=== PATIENT | male | born 1955 | race Hispanic/Latino ===

== ENCOUNTER 2017-07-03 21:58 | Emergency (ER) | payer OTHER ==
[2017-07-03 22:00] VITALS: TEMP 96; O2SAT 97
[2017-07-03] MEDS ORDERED: Sodium Chloride 0.9% 1,000 ML IV STA (22:15)
[2017-07-03 22:55] VITALS: BP 130/77; PULSE 71; RESP 24
[2017-07-03 22:56] LABS: BASO % 0.5 % (0.0-2.0); EOS # 0.1 K/uL (0.0-0.7); EOS % 0.9 % (0.0-4.0); LYMPH # 4.7 K/uL (1.0-4.3); LYMPH % 55.4 % (20.0-40.0); MEAN CELL VOLUME 90.9 fl (80.0-94.0); MEAN CORPUSCULAR HEMOGLOBIN 30.5 pg (27.0-31.0); MEAN CORPUSCULAR HGB CONC 33.6 g/dL (33.0-37.0); MEAN PLATELET VOLUME 9.1 fl (7.2-11.7); MONO # 0.7 K/uL (0.0-0.8); MONO % 8.7 % (0.0-10.0); NEUT % 34.5 % (50.0-75.0); NRBC % 0.2 % (0.0-0.0); RBC 4.59 Mil/uL (4.40-5.90); RED CELL DISTRIBUTION WIDTH 12.8 % (11.5-14.5); WHITE BLOOD COUNT 8.6 K/uL (4.8-10.8)
[2017-07-03 22:57] LABS: ALB/GLOB RATIO 1.6 (1.0-2.1); ALBUMIN 4.8 g/dL (3.5-5.0); ALT/SGPT 43 U/L (21-72); AST/SGOT 38 U/L (17-59); BLOOD UREA NITROGEN 12 mg/dl (9-20); CALCIUM 9.1 mg/dL (8.4-10.2); GFR AFRICAN-AMERICAN > 60; GFR NON-AFRICAN AMERICAN > 60; LIPASE 68 U/L (23-300)
--- NOTE | 2017-07-03 23:48 | ED PDOC ---
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 denies: Chest Pain Additional Complaint(s): Param Bob is a 61 year old male, with a past medical history of CAD with stent, who was brought to the emergency department by EMS for nausea and multiple episodes of vomiting with blood onset prior to arrival. Patient reports he was at dinner, admits to drinking ETOH, and then during dinner began feeling nauseous with several episodes of vomit with blood. Patient reports having a colonoscopy at age 52 which came back normal and he is currently taking Aspirin. He states "I just feel sick." He denies any chest pain, shortness of breath or abdominal pain. No further medical complaints. PMD: None provided. Past Medical History Reviewed: Historical Data, Nursing Documentation, Vital Signs Vital Signs: Last Vital Signs Temp 96 F L 07/03/17 21:59 Pulse 71 07/03/17 22:54 Resp 24 07/03/17 22:54 BP 130/77 07/03/17 22:54 Pulse Ox 97 07/03/17 22:54 - Medical History PMH: CAD (w/ stent), HTN - Surgical History Other surgeries: Colonoscopy - Family History Family History: States: Unknown Family Hx - Social History Current smoker - smoking cessation education provided: No Alcohol: None Drugs: Denies - Home Medications Home Medications: Ambulatory Orders Medication Instructions Recorded Aspirin [Aspirin Chewable] 1 tab PO DAILY 07/03/17 Cholecalciferol (Vitamin D3) 1 tab PO DAILY 07/03/17 [Vitamin D3] Rosuvastatin Calcium [Crestor] 40 mg PO DAILY 07/03/17 Valsartan [Diovan] 1 tab PO DAILY 07/03/17 Omeprazole 20 mg PO DAILY #30 capsule. 07/04/17 - Allergies Allergies/Adverse Reactions: Allergies Allergy/AdvReac Type Severity Reaction Status Date / Time ampicillin Allergy RASH Verified 07/03/17 21:59 Review of Systems ROS Statement: Except As Marked, All Systems Reviewed And Found Negative Cardiovascular: Negative for: Chest Pain Respiratory: Negative for: Shortness of Breath Gastrointestinal: Positive for: Nausea, Vomiting (multiple episodes, w/ blood). Negative for: Abdominal Pain Physical Exam - Reviewed Nursing Documentation Reviewed: Yes Vital Signs Reviewed: Yes - Physical Exam Appears: Positive for: Uncomfortable (actively vomiting) Head Exam: Positive for: ATRAUMATIC, NORMAL INSPECTION, NORMOCEPHALIC Skin: Positive for: Normal Color, Warm, Dry Eye Exam: Positive for: Normal appearance Neck: Positive for: Normal, Painless ROM, Supple Cardiovascular/Chest: Positive for: Regular Rate, Rhythm. Negative for: Murmur Respiratory: Positive for: Normal Breath Sounds. Negative for: Accessory Muscle Use, Respiratory Distress Gastrointestinal/Abdominal: Positive for: Normal Exam, Soft. Negative for: Tenderness, Guarding, Rebound Back: Positive for: Normal Inspection. Negative for: L CVA Tenderness, R CVA Tenderness Extremity: Positive for: Normal ROM. Negative for: Pedal Edema, Deformity, Swelling Neurologic/Psych: Positive for: Alert, Oriented (x3). Negative for: Motor/ Sensory Deficits - Laboratory Results Result Diagrams: 07/04/17 01:12 07/03/17 22:32 - ECG O2 Sat by Pulse Oximetry: 97 (RA) Pulse Ox Interpretation: Normal Medical Decision Making Medical Decision Making: Time: 23:45 Initial Impression: Upper GI bleed secondary to alcohol gastritis vs Reta- Multani tear vs Ulcer Initial Plan: --Type and screen --EKG --Alcohol Serum --Comp Metabolic Panel --Lipase --Troponin I --NPO Diet --CBC w/ differential --Chest one view [RAD] --Sodium Chloride 1,000 ml IV 1,000 mls/hr --Pepcid 20 mg IVP --Protonix Inj 40 mg IVP --Reglan 10 mg IVPB --Zofran Inj 4 mg IVP --reevaluation 1AM Pt. improving 3AM Pt. no longer vomiting, felt dizzy when ambulating to bathroom. 6AM Pt. no longer feeling dizzy, tolerated pitcher of water. 06:00 --Upon provider evaluation patient is medically stable, and requires no further treatment in the ED at this time. Patient will be discharged home. Counseling was provided and all questions were answered regarding diagnosis. There is agreement to discharge plan. Return if symptoms persist or worsen. Scribe Attestation: Documented by Sonny Ruiz acting as a scribe for Hawk Dent MD. Scribmuriel Attestation: All medical record entries made by the Scribe were at my direction and personally dictated by me. I have reviewed the chart and agree that the record accurately reflects my personal performance of the history, physical exam, medical decision making, and the department course for this patient. I have also personally directed, reviewed, and agree with the discharge instructions and disposition. Disposition - Clinical Impression Clinical Impression: Gastritis, Hematemesis - Disposition Referrals: Mehnaz CHOPRA,MD Kendell [Medical Doctor] - Disposition Time: 06:00 Condition: STABLE Prescriptions: Omeprazole 20 mg PO DAILY #30 capsule. Instructions: Acute Nausea and Vomiting (ED), Gastritis (DC), Diet for Ulcers and Gastritis (ED) Forms: [employer] (Tajik)
[2017-07-04] MEDS ORDERED: Sodium Chloride 0.9% 1,000 ML IV STA (00:35)
[2017-07-04 01:23] LABS: HEMOGLOBIN 11.9 g/dL (12.0-18.0); MEAN CELL VOLUME 91.6 fl (80.0-94.0); MEAN CORPUSCULAR HGB CONC 33.9 g/dL (33.0-37.0); RBC 3.85 Mil/uL (4.40-5.90); RED CELL DISTRIBUTION WIDTH 12.9 % (11.5-14.5); WHITE BLOOD COUNT 10.9 K/uL (4.8-10.8)
[2017-07-04 03:09] LABS: URINE BILIRUBIN NEGATIVE (NEGATIVE); URINE BLOOD NEGATIVE (NEGATIVE); URINE CLARITY CLEAR (Clear); URINE COLOR YELLOW (YELLOW); URINE GLUCOSE (UA) NEG (Normal); URINE LEUKOCYTE ESTERASE NEG Leu/uL (Negative); URINE NITRATE NEGATIVE (NEGATIVE); URINE PROTEIN NEGATIVE (NEGATIVE); URINE UROBILINOGEN 0.2-1.0 mg/dL (0.2-1.0)
--- NOTE | 2017-07-04 10:24 | RAD ---
PROCEDURE: CHEST RADIOGRAPH, 1 VIEW HISTORY: vomiting COMPARISON: None available. FINDINGS: LUNGS: Single frontal portable view of the chest reveals mild probable subsegmental atelectasis at the lung bases secondary to hypoventilatory changes. No focal alveolar infiltrate is seen. No pneumothorax is seen. Trachea is midline. Heart is top-normal in size. Mild atherosclerotic change of the aorta is noted. No pleural effusion is seen. PLEURA: See above CARDIOVASCULAR: No CHF OSSEOUS STRUCTURES: No fractures VISUALIZED UPPER ABDOMEN: Normal. OTHER FINDINGS: None. IMPRESSION: Mild bibasilar subsegmental atelectasis and volume loss.
--- NOTE | 2017-07-04 11:58 | CARD ---
APPROVED REPORT EKG Measurement Heart [id number] <Conclusion> Sinus rhythm with 1st degree AV block Otherwise normal ECG
== END 2017-07-04 07:33 | disposition home or self-care (01) ==
LOC: H.ER 21:58
DX: K29.70 Gastritis, unspecified, without bleeding (principal); I10 Essential (primary) hypertension; Z79.82 Long term (current) use of aspirin; Z95.5 Presence of coronary angioplasty implant and graft; I25.10 Atherosclerotic heart disease of native coronary artery without angina pectoris
CPT/HCPCS: 71045; 80053; 80320; 81003; 83690; 84484; 85025; 85027; 86850; 86900; 93005; 96365; 96375; 99284; C9113; J2405; J2765; J7040